=== PATIENT | female | born 1955 | race Caucasian/White ===

== ENCOUNTER 2017-04-04 13:47 | Inpatient (IN) | payer BC ==
[~2017-04-04] VITALS: Ht 162.6 cm; Wt 48.9 kg
--- NOTE | ~2017-04-04 | ER ---
PATIENT'S NAME: AUBREE CANALES [facility] AGE: 61 Y [address] ROOM: [place] [address] LOCATION: [facility] ADMIT DATE: 04/04/2017 ER/Outpatient Report DISCHARGE DATE: FAMILY PHYSICIAN: Dilcia Hussein MD ATTENDING PHYSICIAN: Rachel Petersen Time of Arrival: 1353 hours. Time of Evaluation: 1353 hours. CHIEF COMPLAINT: Head bleed. HISTORY OF PRESENT ILLNESS: The patient is a 61-year-old female who presents to the emergency department today a chief complaint of head bleed. The patient initially presented to [facility] after being found down, apparent ground level fall. 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 The patient was apparently found by her . No other information is known at this time other than the patient did undergo CT imaging and was found to have a subdural hematoma with herniation. PAST MEDICAL HISTORY: Piqua chorea and seizure disorder. PAST SURGICAL HISTORY: Unknown. SOCIAL HISTORY: The patient is , otherwise unknown. ALLERGIES: NO KNOWN DRUG ALLERGIES. MEDICATIONS: Please see list. REVIEW OF SYSTEMS: Unable to be obtained secondary to the patient's condition. LABORATORY DATA AND X-RAYS: Labs and x-rays are obtained at an outlying facility and reviewed. Lactic acid is 4.6. Urine drug screen is negative. PT is 15.4, INR is 1.46, activated PTT is normal. CBC: White blood cell count 7.5, hemoglobin 11.6, hematocrit 34, and platelet 197. CMP: Sodium 144, potassium 3.2, chloride 109, BUN 12, creatinine 0.7, and glucose 174. AB.47/36/497/26/2.0. PATIENT'S NAME: AUBREE CANALES [facility] AGE: 61 Y [address] ROOM: [address] [address] LOCATION: [facility] ADMIT DATE: 04/04/2017 ER/Outpatient Report DISCHARGE DATE: FAMILY PHYSICIAN: Dilcia Hussein MD ATTENDING PHYSICIAN: Rachel Petersen Urinalysis shows glucose 70, ketone 1+, blood 2+, wbc's 8, rbc's 32, epithelials 2. Amylase is normal. EKG is obtained and is interpreted by myself shows sinus rhythm, rate of 90, normal axis, OK interval normal, QTc of 475. No ST elevation, ST depression, or T-wave inversions are noted. Pelvis x-ray, no evidence of acute fracture. One-view chest x-ray: The ET tube is in place. There is no evidence of pneumothorax. No obvious fracture noted. CT scan of the neck is also obtained and is reviewed by myself. There are no obvious fractures noted. IMPRESSION: Large subdural hematoma with midline shift. PHYSICAL EXAMINATION: VITAL SIGNS: Weight 47.1 kg. Blood pressure 121/71, pulse 108, temperature 96.2, and oxygen saturation 100%, currently being bagged. HEENT: Head: Normocephalic with trauma noted and laceration to the right occipital region. Munson in place, 4 cm approximately. Pupils 3 on the right and sluggish and 3.5 on the left and sluggish. ET tube in place. NECK: In cervical collar. CARDIOVASCULAR: Tachycardic. No murmurs, rubs, or gallops. LUNGS: Bilateral breath sounds. ABDOMEN: Soft and nontender. Positive bowel sounds. MUSCULOSKELETAL: No bony tenderness to palpation. No obvious deformities are noted. NEUROLOGICAL: GCS of 3. Does withdraw to painful stimuli, bilateral lower extremities. No painful reaction in the upper extremities. SKIN: Warm and dry. EMERGENCY DEPARTMENT COURSE: The patient was brought back to the examination room. Seen and evaluated by myself. Laboratory analysis is obtained and is pending at time of transfer to the operating room. The patient's outlying labs are reviewed and EKG is reviewed as described above. I have discussed the case with Dr. Petersen as well as Dr. Morris. They have both seen and evaluated the patient down here in the emergency department. Dr. Petersen has had a discussion with the family, please see his dictation. The patient will proceed to the operating room for treatment and management of subdural with herniation. DISPOSITION: The patient is transferred to the operating room under the care Dr. Petersen and Dr. Morris in critical condition. PATIENT'S NAME: AUBREE CANALES [facility] AGE: 61 Y [address] ROOM: [place] [address] LOCATION: [facility] ADMIT DATE: 04/04/2017 ER/Outpatient Report DISCHARGE DATE: FAMILY PHYSICIAN: Dilcia Hussein MD ATTENDING PHYSICIAN: Rachel Petersen DO KJR/modl /[id number] d: 04/04/171951 t: 04/14/17 0650, OUTPATIENT REPORT
--- NOTE | ~2017-04-04 | HP ---
PATIENT'S NAME: AUBREE CANALES [facility] AGE: 61 Y [address] ROOM: [place] [address] LOCATION: [facility] ADMIT DATE: 04/04/2017 History & Physical DISCHARGE DATE: FAMILY PHYSICIAN: Dilcia Hussein MD ATTENDING PHYSICIAN: Michelle Tejeda DATE OF SERVICE: HISTORY OF PRESENT ILLNESS: This 61-year-old female was transferred here from [place]. She has a history of [place] disease and came from [facility] today with her . She fell. She has had previous falls in the past, some of which she did not tell her about and following this fall, her discovered her almost within a few minutes. Said initially that she responded but soon after that, she became unresponsive, she called motorized squad captain, and quickly got in there, and she had to be intubated and taken to the emergency room in [place]. In the emergency room in [place], she was given a gram per kg of mannitol and scans were done. CT scan of the brain showed a huge left acute, subacute, chronic subdural hematoma, and she was consequently transferred here. PAST MEDICAL HISTORY: She has a history of Kareen chorea apart from that, she really did not have any other medical problems. She has a history of seizures. SOCIAL HISTORY: See the admitting note. ALLERGIES: NO KNOWN ALLERGIES TO MEDICATION. MEDICATIONS: See the admitting note. REVIEW OF SYSTEMS: Could not be carried out primarily because of her neurological status. PHYSICAL EXAMINATION: In the emergency room, the examination was limited. Lady was already intubated, ventilated, just recently been sedated. The pupils were 4 mm in diameter. They both reacted sluggishly to light. I could get withdrawal response in the lower extremities. It really did not get much response in the upper extremities. She was being bagged. I reviewed the CT scan of the brain and as noted in the history, she has a huge subdural hematoma with a very significant losp-du-zzxad shift. PATIENT'S NAME: AUBREE CANALES [facility] AGE: 61 Y [address] ROOM: [place] [address] LOCATION: [facility] ADMIT DATE: 04/04/2017 History & Physical DISCHARGE DATE: FAMILY PHYSICIAN: Dilcia Hussein MD ATTENDING PHYSICIAN: Michelle Tejeda IMPRESSION: Large left acute, subacute, and chronic subdural hematoma with marked right-to- left shift. I discussed the situation with the and the family and they agreed. Cause of treatment was to go ahead and try kelly holes and see if we could drain the subdural with kelly holes, then after that see how she is and see how she does. She pointed out that she also did have some long aspiration. Apparently, when she fell, was unconscious. We planned therefore to take her straight to the operating room and do kelly holes on the left side and see how that plays out. MICHELLE TEJEDA MD AEB/modl /[id number] D: [id number] T: [id number] HISTORY & PHYSICAL
--- NOTE | ~2017-04-04 | DS ---
PATIENT'S NAME: AUBREE CANALES [facility] AGE: 61 Y [address] ROOM: [address] [address] LOCATION: [facility] ADMIT DATE: 04/04/2017 Discharge Summary DISCHARGE DATE: 04/10/2017 FAMILY PHYSICIAN: Dilcia Hussein MD ATTENDING PHYSICIAN: Rachel Petersen DATE OF : 04/10/2017. 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 On the day of admission, came back from [facility] and suddenly fell in the driveway. The was close by, and promptly went to her rescue. Her initial phase he said, she did respond to him. However, by the time that he called 911 and by the time the financial administrator arrived, she became unresponsive. Consequently, she was intubated and taken to the Emergency Room in [place], from where she was consequently referred here. In [place], she had been given a gram per kilogram body weight of mannitol, and investigations carried out there included a CT scan of the brain, which showed a large left acute/subacute chronic subdural hematoma with markedly mmth-mr-ncwbh shift in the midline. On arrival in the Emergency Room, she was unresponsive, she was intubated, and was being ventilated. She was quickly taken to the Operating Room, and had left frontal and parietal kelly holes for evacuation of the subdural hematoma. A subdural drain was put in preoperatively. Although she was unresponsive, the pupils were in diameter, but they reacted sluggishly to light. There was some withdrawal response in both lower extremities prior to going to surgery. There was no response in the upper extremities. She underwent the surgery uneventfully, which was primarily kelly hole evacuation of the subdural hematoma. She was consequently taken back to the Operating Room under continued sedation. She went on to have a CT scan of the brain and a followup CT scan of the brain the day after the subdural hematoma had almost completely been evacuated. There was some pneumocephalus, and there was just a slight jeuf-vz-qusac shift of the midline. Unfortunately, however, the CT scan showed diffuse subarachnoid hemorrhage in both hemispheres, which was not there preoperatively. In addition, she had a large right cerebellar hemorrhage, and there was bilateral contusion of the brain. There were multiple areas of hemorrhage within the brain itself, as well as areas of contusion in the left frontal and left parietal lobes. In light of the marked deterioration of the CT scan of brain, the situation was discussed with her . It was elected to at least see how she would do without being that aggressive. We stopped the sedation and tried to see if she would come around. Unfortunately, she did not, and the as well as the rest of the family elected to take her off the ventilator. The Palliative Care Service was consulted, and they took care of her during her last days. PATIENT'S NAME: AUBREE CANALES [facility] AGE: 61 Y [address] ROOM: [place] [address] LOCATION: [facility] ADMIT DATE: 04/04/2017 Discharge Summary DISCHARGE DATE: 04/10/2017 FAMILY PHYSICIAN: Dilcia Hussein MD ATTENDING PHYSICIAN: Rachel Petersen She following extubation. FINAL DIAGNOSES: 1. Large left acute, subacute, and chronic subdural hematoma. 2. Diffuse contusion of the brain. 3. Intraventricular hemorrhage. 4. Subarachnoid hemorrhage. 5. Severe head injury. MD FREDERICK JULIO/modl /[id number] d: 04/24/172327 t: 05/28/17 1208, DISCHARGE SUMMARY
--- NOTE | ~2017-04-04 | CON ---
PATIENT'S NAME: AUBREE CANALES [facility] AGE: 61 Y [address] ROOM: [place] [address] LOCATION: [facility]ICU ADMIT DATE: 04/04/2017 Consultation DISCHARGE DATE: FAMILY PHYSICIAN: Dilcia Hussein MD ATTENDING PHYSICIAN: Rachel Petersen DATE OF CONSULTATION: 04/04/2017 REFERRING PHYSICIAN: Rachel Petersen MD REASON FOR CONSULTATION: Neurointensive management. CHIEF COMPLAINT: Apmba-mk-vugajgp subdural hematoma. 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 Her gait over the past few weeks was at home, stepped outside within 5 minute, found her down and unresponsive, EMS was called. She had experienced some emisis and aspiration prior during ET tube placement in the field. She was taken to [facility], found to have appeared to be svhbg-yp-ctscvok subdural hematomas, was transported here for definitive care. She was emergently taken back to the OR for removal kelly hole evacuation of the hematoma. Seeing her postoperatively during the case, she had placed arterial line and central line. She did lose fair amount of blood and is undergoing massive transfusion protocol. She was initially hypotensive in the ICU and responded to fluid. She has roughly 4 units of PRBCs, 2 of FFP, and one of platelets. PAST MEDICAL HISTORY: Significant for [place] disease, seizure disorder. ALLERGIES: UNKNOWN. REVIEW OF SYSTEMS: Unobtainable. PHYSICAL EXAMINATION: VITAL SIGNS: Currently heart rate is 60, blood pressure is 140/51, 100% SpO2, she is on a ventilator with tidal volume 300 at rate of 20 and PEEP of 5. HEENT: Head; her dressings; there is some blood coming through. There is a GERTRUDE drain that is accumulating some bright red blood. CHEST: Clear to auscultation. PATIENT'S NAME: AUBREE CANALES [facility] AGE: 61 Y [address] ROOM: [place] [address] LOCATION: [facility] ADMIT DATE: 04/04/2017 Consultation DISCHARGE DATE: FAMILY PHYSICIAN: Dilcia Hussein MD ATTENDING PHYSICIAN: Rachel Petersen HEART: Regular rate and rhythm. ABDOMEN: Soft and nondistended. EXTREMITIES: No cyanosis, clubbing, or edema. NEUROLOGIC: Her left pupil appears to be dilated and unresponsive, maybe around 5 mm. The right pupil is unresponsive and is about 4 mm. She is not withdrawing to painful stimuli though she is still may have some paralytic on board. There is no gag noted as well. LABORATORY DATA: White cells were 17, hemoglobin is 9.5, platelets 57. Potassium is 2.9, sodium 150, creatinine 0.8, BUN 10, glucose 288, INR is 3.2, fibrinogen 30, PTT is 300. CT scan showed bnlpp-hs-zfegyjp good size left ventricular hematoma. ABG is pending. ASSESSMENT: 1. Jdrqc-wh-ywgvczj subdural hematoma status post kelly hole evacuation. 2. Coagulopathy likely due to hemorrhage and acute blood loss. We are working to replace PRBC FFP cryo platelets to arrest her coagulopathy. 3. Thrombocytopenia. 4. Temple disease. 5. Acute respiratory failure secondary to head injury with hypoxia and hypocarbia. DISPOSITION: At this time, ICU. CONDITION: Critical. Did have a discussion with the family with regards on what she would like to have done or not done. This time wanted to proceed with the procedure and see if she wakes up. Did discuss that she could have aspiration pneumonia and may require a period of time on the ventilator, had been achieved as she does wake up. They are in agreement and proceeded. Does appear at this time there is some worsening of the condition from arrival. FLY WALKER MD JArtP/modl PATIENT'S NAME: AUBREE CANALES [facility] AGE: 61 Y [address] ROOM: [place] [address] LOCATION: [facility] ADMIT DATE: 04/04/2017 Consultation DISCHARGE DATE: FAMILY PHYSICIAN: Dilcia Hussein MD ATTENDING PHYSICIAN: Rachel Petersen /[id number] d: 06/19/17 0003 t: 04/15/17 1711, CONSULTATION REPORT
--- NOTE | ~2017-04-04 | OR ---
PATIENT'S NAME: AUBREE CANALES [facility] AGE: 61 Y [address] ROOM: [place] [address] LOCATION: [facility] ADMIT DATE: 04/04/2017 OR/Procedure Report DISCHARGE DATE: FAMILY PHYSICIAN: Dilcia Hussein MD ATTENDING PHYSICIAN: Rachel Petersen SURGEON: Waqas Morris MD QUAHOGGER: DATE OF PROCEDURE: 04/04/2017 PROCEDURES PERFORMED: Central line placement and arterial line placement. DESCRIPTION OF PROCEDURE: Procedure #1: Central line placement. After induction of general anesthesia, the patient was supine on the operating room table. Neck was prepped with chlorhexidine 2%. Maximal sterile barriers were worn at all times. Ultrasound used for real-time guidance with the introducer needle. With a single stick, dark, nonpulsatile blood was found on return. Wire was threaded without difficulty, and the ultrasound was used to visualize the wire in the internal jugular vein. Next, the skin nicked, dilated, and a four-lumen, 8-1/2-Swedish 16 cm catheter was placed over the wire and the wire removed. Catheter was secured in place. All ports withdrew, blood flushed easily. Chest x-ray was ordered in ICU. COMPLICATIONS: None. ESTIMATED BLOOD LOSS: None. Procedure #2: Right arterial line placement. Arm was extended out at 90 degrees, cleaned with 2% chlorhexidine. Using a Seldinger technique, and a 20- gauge Arrow catheter, Art line kit was placed with a single stick revealing bright red pulsatile blood. Catheter was threaded without difficulty and secured into place. ESTIMATED BLOOD LOSS: None. COMPLICATIONS: None. WAQAS MORRIS MD JJP/modl /[id number] d: 04/08/171924 t: 04/15/171713, OPERATIVE SUMMARY
--- NOTE | ~2017-04-04 | CON ---
PATIENT'S NAME: AUBREE CANALES [facility] AGE: 61 Y [address] ROOM: [address] [place], [place] [address] [address]: [facility] ADMIT DATE: 04/04/2017 Consultation DISCHARGE DATE: 04/10/2017 FAMILY PHYSICIAN: Dilcia Hussein MD ATTENDING PHYSICIAN: Rachel Petersen DATE OF CONSULTATION: 04/07/2017 REFERRING PHYSICIAN: Rachel Petersen MD LOCATION: ICU, room 6203. CHIEF COMPLAINT: Palliative care referral due to family's request for compassionate extubation. HISTORY OF PRESENT ILLNESS: The patient is a 61-year-old female with a history of [place] chorea who experienced a fall on her way into the house from congregation. She fell backwards and hit the back of her head on the cement. She sustained a large laceration to the back of her head, was intubated in the field, possibly aspirated stomach content prior to intubation. The patient was initially taken to [facility] where she was found to have acute on chronic subdural hematoma and was then transferred to [facility] for higher level of care where she was taken to OR for bilateral kelly holes and evacuation of subdural hematoma. At the current time, the patient remains unresponsive and is not on any sedation. A followup CT has shown worsening with concern for development of left RYAN distribution ischemia. Given this, the patient's family is considering compassionate extubation in the morning. PREVIOUS OPERATIONS: Breast biopsy. PAST MEDICAL HISTORY: 1. Seizure disorder. 2. B[place]ank chorea. 3. Anxiety. MEDICATIONS: Please see current MAR. ALLERGIES: NO KNOWN ALLERGIES. SOCIAL HISTORY: The patient is . She does not have children. No history of tobacco or PATIENT'S NAME: AUBREE CANALES [facility] AGE: 61 Y [address] ROOM: [address] [address] LOCATION: [facility] ADMIT DATE: 04/04/2017 Consultation DISCHARGE DATE: 04/10/2017 FAMILY PHYSICIAN: Dilcia Hussein MD ATTENDING PHYSICIAN: Rachel Petersen alcohol use. FAMILY HISTORY: Her father had B[place] chorea as well as 2 siblings. REVIEW OF SYSTEMS: Unobtainable as the patient is unresponsive, though family does note that over the last few weeks she has been having increasing difficulties with gait stability. Otherwise, she was in her usual state of health prior to this incident. PHYSICAL EXAMINATION: VITAL SIGNS: Blood pressure 145/79, heart rate 87, temperature 99.6, respirations 20, and O2 saturation 100% on 30% FiO2 on the ventilator. GENERAL: A thin, middle-aged white female who is lying in the intensive care unit, intubated and unresponsive. Does not appear to be in any acute distress. HEENT: Her head is wrapped in a gauze dressing. Dressing is clean, dry, and intact. Pupils are reactive and sluggish to brisk. Sclerae not icteric. Conjunctivae pink. Tongue and mucous membranes are moist and pink. Dentition is adequate. CARDIOVASCULAR: Heart tones regular rate and rhythm. I am not able to note a murmur. RESPIRATORY: Respirations are regular and nonlabored. Lung sounds are clear to auscultation bilaterally. I am not able to note any rales, rhonchi, or wheezes. GASTROINTESTINAL: Abdomen is soft, nontender, and nondistended. Bowel sounds are present. GENITOURINARY: Cee catheter intact with adequate amounts of yellow urine. MUSCULOSKELETAL: No significant joint deformities. Peripheral pulses are strong and equal bilaterally. There is no clubbing or cyanosis. She does have 1 to 2+ generalized edema. SKIN: Warm and dry. Does have significant bruising to face, shoulder, and neck. NEUROLOGICAL: Does not follow commands. Does not open eyes. Does withdraw extremities to painful stimuli. Overbreathes the vent. Does have a cough. IMPRESSION AND PLAN: 1. Respiratory failure. 2. Altered mental status. 3. Code status: The patient is a do not resuscitate. I met with the patient's Nolberto. Introduced the role of palliative care for additional support. He, very early in the conversation, tells me that he has decided that he wants to take her off the ventilator and "let her go" at 5:30 tomorrow morning. Given this, did provide education to the PATIENT'S NAME: AUBREE CANALES [facility] AGE: 61 Y [address] ROOM: [place] [address] LOCATION: [facility] ADMIT DATE: 04/04/2017 Consultation DISCHARGE DATE: 04/10/2017 FAMILY PHYSICIAN: Dilcia Hussein MD ATTENDING PHYSICIAN: Rachel Petersen patient's and family on compassionate extubation and medications we would be using to help her be comfortable. Provided emotional support and active listening. Family reports that the patient's customer development manager had been up and provided anointing of the sick twice already during this hospital stay and felt as though they did not need anymore pastoral care visits at this time. Nursing staff tells me that the other providers involved in this case are aware of plans for extubation. Thus, compassionate extubation and comfort care order sets are completed and to be initiated in the morning when the patient's family is ready. I answered family's questions to their satisfaction. We will follow up in the morning and assist with comfort measures. Total visit was 60 minutes, greater than 50% of this time was spent providing education and counseling. Thank you for allowing me to assist with this patient and her family. RHONDA PARSONS NP FOR PHUONG RODRIGUEZ MD DLS/modl /[id number] CC: Rachel Petersen MD d: 04/13/17 1318 t: 04/14/17 1100, CONSULTATION REPORT
--- NOTE | ~2017-04-04 | OR ---
PATIENT'S NAME: AUBREE CANALES [facility] AGE: 61 Y [address] ROOM: [place] [address] LOCATION: GICU ADMIT DATE: 04/04/2017 OR/Procedure Report DISCHARGE DATE: FAMILY PHYSICIAN: Dilcia Hussein MD ATTENDING PHYSICIAN: Michelle Tejeda SURGEON: Michelle Tejeda MD FIRST CALENDER WORKER: DATE OF PROCEDURE: 04/04/2017 PREOPERATIVE DIAGNOSIS: Subacute acute on chronic subdural hematoma in the left hemisphere. POSTOPERATIVE DIAGNOSIS: Subacute acute on chronic subdural hematoma in the left hemisphere. OPERATION PROPOSED AND PERFORMED: Left frontal and left parietal bur holes for evacuation of subdural hematoma. DESCRIPTION OF PROCEDURE: Under general anesthesia, the patient was positioned supine. The head tilted to the right. The left frontoparietal region was shaved and prepped in the usual manner. First, the incision was carried out in the left frontal region. The pericranium was incised and reflected and a bur hole was carried out at this site. After, the bone wax was used to stop the bleeding from the edges of the bone. The dura was then cauterized and incised in a cruciate manner. The bright red fluid came out under significant quite a lot of pressure. The edges of the dura were then cauterized and we started irrigating the subdural space with bacitracin irrigation and the fluid was stayed reddish for quite a while and later on we decided to therefore put a second bur hole in the left parietal region and this was carried out uneventfully. However, there was not much subdural left in this region and consequently we did not get much on trying to irrigate the subdural space because the surface of the brain was already close to the surface of the dura. We put a piece of Gel-Foam over the bur hole site in this area and closed the wound in a single layer using 3-0 Prolene. Next, we directed our attention to the left frontal bur hole. Irrigated the area copiously with bacitracin irrigation and the fluid that was coming out was still pinkish red. We eventually decided to then put in a subdural drain, Grant-Gallagher, brought it out through a separate stab wound. A piece of Gelfoam was laid over into the bur hole that we had created and the scalp incision was closed in a single layer with 3-0 Prolene. We then put a stitch around the Grant-Gallagher drain at the exit wound from the scalp. Intraoperatively towards the end, she became hypotensive and required quite a lot of pressors and fluid before she came around. This we thought was probably secondary to hypovolemia because she had probably lost a lot of blood from the scalp laceration. Otherwise, the patient tolerated the procedure PATIENT'S NAME: AUBREE CANALES [facility] AGE: 61 Y [address] ROOM: [address] [address] LOCATION: [facility] ADMIT DATE: 04/04/2017 OR/Procedure Report DISCHARGE DATE: FAMILY PHYSICIAN: Dilcia Hussein MD ATTENDING PHYSICIAN: Michelle Tejeda well and was taken to the intensive care unit. MICHELLE TEJEDA MD AEB/modl /[id number] d: [id number]/04/[id number] t: 04/08/17 1517, OPERATIVE SUMMARY
[2017-04-04 14:42] LABS: BASOPHIL # 0.1 K/uL (0.0-0.2); BASOPHIL % 0.3 %; HEMATOCRIT 26.5 % (33.0-46.0); HEMOGLOBIN 8.7 g/dL (10.0-15.0); IMMATURE GRANULOCYTE # 0.2 K/uL (0.0-0.3); IMMATURE GRANULOCYTE % 1.2 %; LYMPHOCYTE # 2.1 K/uL (0.8-4.0); MCH 32.6 pg (27.0-34.0); MCHC 32.8 gm/dL (32.0-36.5); MCV 99.3 fl (83.0-98.0); MONOCYTE # 2.2 K/uL (0.0-1.0); MONOCYTE % 10.8 %; NEUTROPHIL # (ANC) 16.1 K/uL (1.8-7.8); NEUTROPHIL % 77.7 %; NRBC % 0 /100WBC (0-0.00); PLATELET COUNT 190 K/uL (150-450); RBC 2.67 M/uL (3.50-5.50); RDW-CV 12.7 % (11.9-14.6)
[2017-04-04 14:43] LABS: WBC 20.7 K/uL (4.0-11.0)
[2017-04-04 14:49] LABS: INR - (THERAPEUTIC) 1.55 (0.92-1.07); PROTIME 16.4 SECONDS (9.8-11.4); PTT 28 SECONDS (25-32)
[2017-04-04 14:57] LABS: ALBUMIN 2.7 gm/dL (3.5-5.0); ALK PHOS 65 IU/L (33-138); ALT 30 IU/L (12-78); AST 36 IU/L (10-40); BLOOD UREA NITROGEN 13 mg/dL (6-24); CHLORIDE 107 mMol/L (96-110); CO2 24 mMol/L (22-32); CREATININE 0.8 mg/dL (0.5-1.1); ESTIMATED GFR (MDRD EQUATION) > 60; SODIUM 143 mMol/L (135-145); TOTAL BILIRUBIN 0.4 mg/dL (0.0-1.5); TOTAL PROTEIN 5.1 g/dL (6.0-8.4)
[2017-04-04 14:58] LABS: ANION GAP 14.9 (10.0-19.0); CALCIUM 7.3 mg/dL (8.5-10.5); POTASSIUM 2.9 mMol/L (3.7-5.1)
[2017-04-04 16:41] LABS: BASOPHIL % 0.2 %; EOSINOPHIL % 0.1 %; HEMATOCRIT 29.5 % (33.0-46.0); HEMOGLOBIN 9.5 g/dL (10.0-15.0); IMMATURE GRANULOCYTE # 0.3 K/uL (0.0-0.3); IMMATURE GRANULOCYTE % 1.6 %; LYMPHOCYTE # 2.3 K/uL (0.8-4.0); LYMPHOCYTE % 13.5 %; MCHC 32.2 gm/dL (32.0-36.5); MCV 99.3 fl (83.0-98.0); MONOCYTE # 1.9 K/uL (0.0-1.0); MONOCYTE % 11.1 %; MPV 8.8 fl (9.4-12.4); NEUTROPHIL # (ANC) 12.6 K/uL (1.8-7.8); NEUTROPHIL % 73.5 %; NRBC % 0 /100WBC (0-0.00); RBC 2.97 M/uL (3.50-5.50); RDW-CV 13.6 % (11.9-14.6)
[2017-04-04 16:43] LABS: WBC 17.1 K/uL (4.0-11.0)
[2017-04-04 16:46] LABS: PLATELET COUNT 57 K/uL (150-450)
[2017-04-04 17:01] LABS: ALBUMIN 1.1 gm/dL (3.5-5.0); ALK PHOS 32 IU/L (33-138); ALT 14 IU/L (12-78); ANION GAP 20.9 (10.0-19.0); AST 21 IU/L (10-40); BLOOD UREA NITROGEN 10 mg/dL (6-24); CALCIUM 6.5 mg/dL (8.5-10.5); CHLORIDE 116 mMol/L (96-110); CO2 16 mMol/L (22-32); CREATININE 0.8 mg/dL (0.5-1.1); ESTIMATED GFR (MDRD EQUATION) > 60; POTASSIUM 2.9 mMol/L (3.7-5.1); SODIUM 150 mMol/L (135-145); TOTAL PROTEIN 2.2 g/dL (6.0-8.4)
[2017-04-04 17:02] LABS: TOTAL BILIRUBIN 0.1 mg/dL (0.0-1.5)
[2017-04-04 17:30] LABS: INR - (THERAPEUTIC) 3.23 (0.92-1.07); PROTIME 34.3 SECONDS (9.8-11.4)
[2017-04-04 17:32] LABS: PTT > 300 SECONDS (25-32)
[2017-04-04 18:07] LABS: PCO2 41 mmHg (35-45); PO2 484 mmHg (80-90)
[2017-04-04 18:08] LABS: POTASSIUM 3.3 mEq/L (3.7-5.1); SODIUM 146 mEq/L (135-145)
[2017-04-04 20:41] LABS: HEMATOCRIT 26.8 % (33.0-46.0); HEMOGLOBIN 9.2 g/dL (10.0-15.0); MCH 29.1 pg (27.0-34.0); MCHC 34.3 gm/dL (32.0-36.5); MPV 9.6 fl (9.4-12.4); RBC 3.16 M/uL (3.50-5.50); WBC 10.5 K/uL (4.0-11.0)
[2017-04-04 20:42] LABS: MCV 84.8 fl (83.0-98.0); PLATELET COUNT 112 K/uL (150-450); RDW-CV 16.2 % (11.9-14.6)
[2017-04-04 20:52] LABS: INR - (THERAPEUTIC) 1.07 (0.92-1.07); PROTIME 11.2 SECONDS (9.8-11.4); PTT 26 SECONDS (25-32)
[2017-04-04 21:02] LABS: ABSOLUTE NEUTROPHIL CT (ANC) 8.3 K/uL (1.8-7.8); BANDED NEUTROPHIL # 0.8 K/uL (0.0-0.1); BANDED NEUTROPHILS % 8 %; LYMPHOCYTE # 0.5 K/uL (0.8-4.0); LYMPHOCYTE % 5 %; MONOCYTE # 1.7 K/uL (0.0-1.0); SEGMENTED NEUTROPHIL # 7.5 K/uL (1.8-7.8); SEGMENTED NEUTROPHIL % 71 %
[2017-04-05 00:24] LABS: HEMOGLOBIN 8.8 g/dL (10.0-15.0)
[2017-04-05 05:05] LABS: BICARBONATE 25.8 mmol/L (18.0-23.0); LACTATE 2.5 mEq/L (0.50-1.60); PCO2 38 mmHg (35-45); PO2 161 mmHg (80-90)
[2017-04-05 05:20] LABS: BASOPHIL % 0.1 %; HEMOGLOBIN 11.6 g/dL (10.0-15.0); IMMATURE GRANULOCYTE % 0.4 %; LYMPHOCYTE # 1.1 K/uL (0.8-4.0); LYMPHOCYTE % 13.8 %; MCH 29.7 pg (27.0-34.0); MCV 84.7 fl (83.0-98.0); MONOCYTE # 1.2 K/uL (0.0-1.0); MONOCYTE % 15.3 %; MPV 9.8 fl (9.4-12.4); NEUTROPHIL # (ANC) 5.6 K/uL (1.8-7.8); NEUTROPHIL % 70.4 %; NRBC % 0 /100WBC (0-0.00); PLATELET COUNT 95 K/uL (150-450); RBC 3.91 M/uL (3.50-5.50); RDW-CV 16.4 % (11.9-14.6)
[2017-04-05 05:26] LABS: ALBUMIN 2.4 gm/dL (3.5-5.0); ALK PHOS 48 IU/L (33-138); ALT 26 IU/L (12-78); AST 32 IU/L (10-40); BLOOD UREA NITROGEN 7 mg/dL (6-24); CALCIUM 7.8 mg/dL (8.5-10.5); CO2 26 mMol/L (22-32); CREATININE 0.7 mg/dL (0.5-1.1); ESTIMATED GFR (MDRD EQUATION) > 60; POTASSIUM 3.7 mMol/L (3.7-5.1)
[2017-04-05 05:28] LABS: ANION GAP 10.7 (10.0-19.0); CHLORIDE 129 mMol/L (96-110); SODIUM 162 mMol/L (135-145); TOTAL BILIRUBIN 0.7 mg/dL (0.0-1.5)
[2017-04-05 05:29] LABS: HEMATOCRIT 33.1 % (33.0-46.0)
[2017-04-05 05:41] LABS: INR - (THERAPEUTIC) 1.08 (0.89-1.05); PROTIME 11.3 SECONDS (9.1-10.7); PTT 26 SECONDS (23-30)
--- NOTE | 2017-04-05 08:16 | NUR ---
Significant Event: PT REMAINS INTUBATED, NO SEDATION. R) PUPIL 3/FIXED, L) PUPIL 5/FIXED. INDUCED COUGH PRESENT, NO SPONTANEOUS MOVMENT OTHER THAN TWITCHING, DECEREBRATE POSTURING. BECOMES VERY HYPERTENSIVE WITH STIMULATION. HR 50S-120S THIS SHIFT, MOSTLY 70S-80S. ONE DOSE OF HYDRALAZINE GIVEN, PATIENT VERY SENSITIVE AND BECAME HYPOTENSIVE TO THE POINT OF NEEDING LEVOPHED AGAIN. DR. WALKER UPDATED WHEN MAXED AND MAP STILL LESS THAN 70, SEE CHART FOR ORDERS RECEIVED. OVERBREATHES VENT AT TIMES, FIO2 WEANED TO 30%. OG TO LIS, DRAINING BILE. NO BM THIS SHIFT. UOP COPIOUS (3600 ML THIS [address] WALKER AWARE, SEE LONG-HAND. EVEN WITH LARGE AMOUNTS OF UOP, PT IS [phone] FOR HOSPITALIZATION. NA+ ON AM LABS 162, DR. WALKER UPDATED AND IVF CHANGED TO 1/2 NS @100/HR. Follow up: CONTINUE, CT IN AM CRISTAL CRONIN RN
[2017-04-05 08:17] LABS: HEMATOCRIT 33.3 % (33.0-46.0); HEMOGLOBIN 12.1 g/dL (10.0-15.0)
[2017-04-05] MEDS ORDERED: DEPAKOTE EXTEN500 MG PO (11:31)
[2017-04-05] MEDS ORDERED: DILANTIN100 MG PO ×3 (11:33→11:40)
[2017-04-05] MEDS ORDERED: ASPIRIN LO-DOSE81 MG PO (11:40)
[2017-04-05] MEDS ORDERED: THERAGRAN-M1 TAB PO (11:40)
[2017-04-05] MEDS ORDERED: CALCIUM 500 +1 EACH PO (11:41)
[2017-04-05 12:02] LABS: HEMATOCRIT 33.1 % (33.0-46.0)
[2017-04-05 12:14] LABS: BLOOD UREA NITROGEN 8 mg/dL (6-24); CALCIUM 7.6 mg/dL (8.5-10.5); CO2 25 mMol/L (22-32); CREATININE 0.6 mg/dL (0.5-1.1); ESTIMATED GFR (MDRD EQUATION) > 60; POTASSIUM 3.4 mMol/L (3.7-5.1)
[2017-04-05 12:16] LABS: ANION GAP 10.4 (10.0-19.0); CHLORIDE 128 mMol/L (96-110); SODIUM 160 mMol/L (135-145)
[2017-04-05 16:15] LABS: HEMOGLOBIN 11.5 g/dL (10.0-15.0)
[2017-04-05 16:31] LABS: ALBUMIN 2.1 gm/dL (3.5-5.0); ANION GAP 9.5 (10.0-19.0); BLOOD UREA NITROGEN 7 mg/dL (6-24); CALCIUM 7.7 mg/dL (8.5-10.5); CHLORIDE 129 mMol/L (96-110); CO2 25 mMol/L (22-32); CREATININE 0.6 mg/dL (0.5-1.1); ESTIMATED GFR (MDRD EQUATION) > 60; PHOSPHORUS 3.2 mg/dL (2.5-4.9); POTASSIUM 3.5 mMol/L (3.7-5.1); SODIUM 160 mMol/L (135-145)
--- NOTE | 2017-04-05 16:52 | NUR ---
No changes to vent settings t/o shift, continued on 30% Fio2. Lung sounds slightly coarse, sxn small white thick. CT transport with no complications. Will continue to monitor
--- NOTE | 2017-04-05 17:41 | NUR ---
PT DECERBRATE TO NOXIUOS STIMULI TO BUE, HYPERREFLEXIA TO BLE. PUPILS UNEQUAL AND FIXED (MD AWARE), SPONT COUGH VERY WEAK WITH INCREASED STIMULI. REPEAT CT SHOWING WORSE COUNTER-COUP BUT MIDLINE SHIFT BETTER AND L) SDH BETTER WITH DRAINED DC'D TODAY. PLAN TO WAIT 3 DAYS AND THEN MAKE PLAN PER FAMILY. VSS, T-MAX 99.7, PULSES 2+, NO EDEMA. LS C/D, A/C ON 30% AND HIGH 90-100% SATS. PADRON WITH LG UOP, DDAVP TO BE GIVEN X6 MORE DOSES (ONE GIVEN TODAY). NO BM, BS HYPO, OGT TO LIS. HOONAH J IN PLACE, FACIAL EDEMA AND ECCHYMOSIS, HEAD DRSG CHANGED WITH SHADOW PRESENT AND OK TO BE CHANGED PRN. R) RADIAL ART LINE DC'D, R) IJ IN PLACE AND PIV X2.
[2017-04-05 20:26] LABS: HEMATOCRIT 32.6 % (33.0-46.0); HEMOGLOBIN 11.7 g/dL (10.0-15.0)
[2017-04-06 00:07] LABS: HEMATOCRIT 32.6 % (33.0-46.0); HEMOGLOBIN 11.3 g/dL (10.0-15.0)
[2017-04-06 04:39] LABS: BICARBONATE 24.5 mmol/L (18.0-23.0); PCO2 36 mmHg (35-45); PO2 129 mmHg (80-90)
[2017-04-06 05:23] LABS: ALK PHOS 51 IU/L (33-138); ALT 20 IU/L (12-78); AST 23 IU/L (10-40); BLOOD UREA NITROGEN 7 mg/dL (6-24); CALCIUM 7.5 mg/dL (8.5-10.5); CO2 25 mMol/L (22-32); CREATININE 0.5 mg/dL (0.5-1.1); ESTIMATED GFR (MDRD EQUATION) > 60; POTASSIUM 3.3 mMol/L (3.7-5.1)
[2017-04-06 05:31] LABS: ANION GAP 8.3 (10.0-19.0); CHLORIDE 124 mMol/L (96-110); SODIUM 154 mMol/L (135-145); TOTAL BILIRUBIN 0.4 mg/dL (0.0-1.5); TOTAL PROTEIN 4.9 g/dL (6.0-8.4)
[2017-04-06 05:44] LABS: BASOPHIL % 0.3 %; EOSINOPHIL % 0.3 %; HEMATOCRIT 31.7 % (33.0-46.0); HEMOGLOBIN 11.2 g/dL (10.0-15.0); IMMATURE GRANULOCYTE % 0.4 %; LYMPHOCYTE # 1.1 K/uL (0.8-4.0); MCH 29.8 pg (27.0-34.0); MCHC 35.3 gm/dL (32.0-36.5); MCV 84.3 fl (83.0-98.0); MONOCYTE # 1.3 K/uL (0.0-1.0); MPV 9.9 fl (9.4-12.4); NEUTROPHIL # (ANC) 8.1 K/uL (1.8-7.8); NRBC % 0 /100WBC (0-0.00); PLATELET COUNT 83 K/uL (150-450); RBC 3.76 M/uL (3.50-5.50); RDW-CV 17.7 % (11.9-14.6); WBC 10.5 K/uL (4.0-11.0)
--- NOTE | 2017-04-06 05:48 | NUR ---
NO CHANGES THIS SHIFT, PT. ON VENT FIO2 30% WITH SATS 98-100%. ETCO2 32-36. BREATH SOUNDS HAVE BEEN SLIGHTLY COARSE IN THE UPPERS AT TIMES AND CLEARS WITH SUCTION. SUCTIONED A SMALL AMOUNT OF THICK WHITE SECRETIONS WILL CONTINUE TO FOLLOW UNTIL FURTHER NOTICE.
[2017-04-06 05:51] LABS: INR - (THERAPEUTIC) 1.07 (0.92-1.07); PROTIME 11.2 SECONDS (9.8-11.4)
--- NOTE | 2017-04-06 07:34 | NUR ---
Significant Event: PT REMAINS INTUBATED WITH NO SEDATION. PUPILS REMAIN FIXED/UNEQUAL. DECEREBRATE POSTURING IN BUE, FLEXION IN BLE. OCCASIONAL DECORTICATION MOVEMENT OF LUE NOTED GENERALIZED NOXIOUS STIMULI SUCH TURNING OR SUCTIONING. SR ON MONITOR, 80S NOT STIMULATED. WILL TACH UP TO 130 WITH STIMULATION BUT SETTLES EASILY. SBP 120S-140S, WILL INCREASE TO 180 WITH STIMULATION BUT SETTLES EASILY. AFEBRILE. RARELY OVERBREATHES SET VENT RATE. OG REMAINS TO LIS, NO BM THIS SHIFT. UOP APPROPRIATE. TOTAL UOP THIS SHIFT 600 ML. Follow up: CONTINUE CRISTAL CRONIN RN
[2017-04-06 17:20] LABS: ALBUMIN 2.1 gm/dL (3.5-5.0); BLOOD UREA NITROGEN 7 mg/dL (6-24); CALCIUM 7.6 mg/dL (8.5-10.5); CO2 23 mMol/L (22-32); CREATININE 0.5 mg/dL (0.5-1.1); ESTIMATED GFR (MDRD EQUATION) > 60; PHOSPHORUS 4.6 mg/dL (2.5-4.9)
[2017-04-06 17:25] LABS: ANION GAP 11.3 (10.0-19.0); CHLORIDE 118 mMol/L (96-110); POTASSIUM 4.3 mMol/L (3.7-5.1); SODIUM 148 mMol/L (135-145)
--- NOTE | 2017-04-06 19:00 | NUR ---
Significant Event:Pt had no sedation or IV pain medicine throughout the shift, continues to decerbrate with BUE to nailbed pressure and decorticate at times with the LUE when oral cares or other stimulation, BLE withdraw to painful stimuli, Rt pupil 3 brisk - sluggish and Lt pupil 5 fixed, Tmax = 101.4 and Tylenol given, SR throughout shift, gave Lopressor IVP x 2 for SBP > 150 , labetatol 100 mg via OG started today, pt remains on vent LS Clear and no vent changes, tolerated CPAP ok this AM for a few hours, hypo bowel sounds, OG to LIS, starr to DD with adequate UOP = 570mls this shift, Total fluids decreased to 120 mls/hr, Kphos given IV, family given frequent updates and Nolberto at bedside most of shift Follow up:Dr Petersen discussed with family to continue another day and see what happens
[2017-04-07 04:20] LABS: BICARBONATE 23.1 mmol/L (18.0-23.0); PCO2 34 mmHg (35-45); PO2 137 mmHg (80-90)
[2017-04-07 04:56] LABS: ALK PHOS 56 IU/L (33-138); ALT 17 IU/L (12-78); AST 21 IU/L (10-40); BLOOD UREA NITROGEN 7 mg/dL (6-24); CO2 23 mMol/L (22-32); CREATININE 0.5 mg/dL (0.5-1.1); ESTIMATED GFR (MDRD EQUATION) > 60; POTASSIUM 3.5 mMol/L (3.7-5.1)
[2017-04-07 04:59] LABS: ANION GAP 9.5 (10.0-19.0); CHLORIDE 118 mMol/L (96-110); SODIUM 147 mMol/L (135-145)
[2017-04-07 05:00] LABS: ALBUMIN 1.9 gm/dL (3.5-5.0); CALCIUM 7.2 mg/dL (8.5-10.5); TOTAL BILIRUBIN 0.5 mg/dL (0.0-1.5); TOTAL PROTEIN 4.9 g/dL (6.0-8.4)
--- NOTE | 2017-04-07 07:02 | NUR ---
Significant Event: PT REMAINS INTUBATED, NO SEDATION. NEURO CHECK MOSTLY UNCHANGED OTHER THAN ASSESSMENT OF PUPILS. PUPILS VARIABLE THROUGHOUT SHIFT. NO GAG, OCCASIONAL COUGH, CORNEALS PRESENT, POSITIVE BABINSKI BILATERALLY. DECEREBRATE IN BUE, W/D IN BLE. SR IN 80S ON MONITOR, TACHS UP TO 120S WITH STIMULATION BUT QUICKLY RECOVERS. TMAX 99.3. RARELY OVERBREATHES VENT. HYPOACTIVE BS, NO BM THIS SHIFT. UOP APPROPRIATE. DRESSING TO HEAD CHANGED, LACERATION TO POSTERIOR PORTION STILL OOZING SIGNIFICANT AMOUNTS OF BLOOD. INFORMED DAY-SHIFT SO THAT THEY MAY HAVE MD LOOK AT SITE. Follow up: CONTINUE CRISTAL CRONIN RN
--- NOTE | 2017-04-07 07:47 | NUR ---
A - ON VENT, NO SEDATION. NA+ 147, GLU 116, BUN/SEAM STAYER 7/0.5, ALB 1.9. PT W/ 1+ EDEMA T/O. NPO. MD/FAMILY DECIDING ON POC AFTER TODAY. D - AT RISK W/ INADEQUATE ORAL INTAKE R/T RELIANCE ON VENT AEB NPO STATUS. I - GOAL: TO MEET 100% OF NEEDS VIA EN. M/E - 1) IF AGGRESSIVE CARE CONTS REC OSMOLITE 1.5 TO RUN AT GOAL OF 40 ML/HR = 1440 KCALS, 60 GM PROTEIN, 732 ML FREE H20. WILL F/U IN 2-4 DAYS.
--- NOTE | 2017-04-07 14:19 | NUR ---
Significant Event: Patient not alert. Pupils unequal and fixed to sluggish at times. Positive corneal relex. Withdraws to pain in bilateral lower extremities. Postures to pain in bilateral upper extremities. No gag. Eyes deviate to the left at times. VSS. Afebrile. CVP. Goal SBP<150. Ventilator in AC mode. LS clear and diminished. Cee draining yello urine. IV lasix given this shift. OG to LIS this AM. TF started mid morning. Hypoactive BS. No BM this shift. Accuchecks D/Cd this shift. Dressing to top of head. R) elbow bruised and abraded. L) inner and behind ear bruised. L) eye bruised. R) IJ infusing with no complications. Family at bedside. Follow up: awaiting to talk to Dr Petersen
[2017-04-07 18:18] LABS: ANION GAP 10.1 (10.0-19.0); BLOOD UREA NITROGEN 6 mg/dL (6-24); CALCIUM 7.5 mg/dL (8.5-10.5); CHLORIDE 113 mMol/L (96-110); CO2 25 mMol/L (22-32); CREATININE 0.4 mg/dL (0.5-1.1); ESTIMATED GFR (MDRD EQUATION) > 60; PHOSPHORUS 3.1 mg/dL (2.5-4.9); POTASSIUM 3.1 mMol/L (3.7-5.1); SODIUM 145 mMol/L (135-145)
[2017-04-07 18:25] LABS: ALBUMIN 1.9 gm/dL (3.5-5.0)
--- NOTE | 2017-04-08 05:53 | NUR ---
Patient extubated at 0536 to comfort care measures. Patient was placed on 2L O2 for comfort.
--- NOTE | 2017-04-08 06:12 | NUR ---
No neurological changes during shift. Vital signs remain stable. Afebrile. Patient compassionatley extubated to 2L Nasal canual per family request with o2 sats in the upper 90s. Palliative care spoke with family this shift. Patient now on comfort cares. Follow up: Keep patient comfortable.
--- NOTE | 2017-04-08 10:29 | NUR ---
PT MOVED TO NO RISK D/T COMFORT CARES. WILL ASSIST IF NEEDED.
--- NOTE | 2017-04-08 12:47 | NUR ---
Significant Event: Patient compassionately extubated this AM at 0530. Neuros not intact. Patient not alert. Does not follow commands. Does not move spontaneously. Did not attempt to apply painful stimuli per agreeance. Tele on per request. Tachycardic and Tachypneic. Generalized edema. 2L NC with sats in the mid 90s. LS slightly coarse throughout. starr intact. No BM this shift. R) jugular central line. Flushes with good blood return. Morphine HAT CUTTER started this shift. 1.5 mg continuous/1 mg bolus q10 min. Dressing to head intact. R) elbow bruised and abraded. L) inner ear and behind ear bruised. L) eye bruised. Resting in bed. stated "she looks comfortable" when asked about repositioning. Family at bedside. Patient on comfort cares. Follow up: transfer to [facility]
--- NOTE | 2017-04-08 15:23 | NUR ---
Significant Event: Pt transfered out of ICU at 1400 on comfort cares. Family at bedside. Bearevment tray ordered. Has a R) IJ, MS OPEN WINDER at 1.5 continous/1mg demand, 10 min lockout, family educated on use of OPEN WINDER. Did do a set of VS per family request, continues on 2 liters O2. Appears to be comfortable at this time/unresponsive. Cee draining zahra urine. Follow up:
--- NOTE | 2017-04-09 05:44 | NUR ---
Significant Event: Patient unresponsive. VSS. tachycardic at 102 HR. 99.1 temp. states he would like her repositioned every 3 hours rather than every 2. Cee cath in place. IJ to R) jugular. Morphine PROFESSOR OF [employer] at 1.5 continuous, 1 demand and 10 min lockout. Tachypnic. 2 liters oxgyen . IV dilantin to help prevent seizures. Follow up: Monitor vitals
--- NOTE | 2017-04-09 15:07 | NUR ---
Significant Event: Pt on comfort cares. Family at bedside. Repositioned q 3 hrs per request of family. Continues on MS EQUIPMENT DRIVER, pt appears to be comfortable this shift. Cee draining small amt of yellow urine. Follow up:
--- NOTE | 2017-04-10 05:16 | NUR ---
Significant Event: On comfort cares. Repositioned frequently as family requests. Suction at bedside. Does cough some with repositioning. Continue Morphine FOREIGN LANGUAGE TEACHER. T Max 103.3, tylenol given x 2 with the last dose at 0400. Rt neck IJ with good blood return. Atropine drops given x 2 and was given last at 0400. at bedside and has slept a good portion of the night. Follow up: Cont comfort cares.
--- NOTE | 2017-04-10 11:00 | NUR ---
Significant Event: Patient repositioned and given rectal suppository of tylenol at 0731 for temperature of 103.0. Patient also given atropine drops at this time. At 0935, AUTHORIZATION COORDINATOR went in to patient's room and family sitting at bedside and patient had . Nurse verified abscense of vital signs at 0940. Patient cleaned up and tubes removed. Time with patient given to family. Pastoral care offered and declined. [facility] chosen by family. Patient taken down to [facility] [place] at 1100 by security. Home en route to get patient.
== END 2017-04-10 09:40 | disposition expired | DRG 25 ==
LOC: GMED 13:47 → GICU 14:14 → GMSU 04-08 15:01
PROVIDERS: Anesthesiology; Emergency Medicine; ADMIT Neurological Surgery
PROC: 009 Central Nervous System and Cranial Nerves, Drainage (ICD-10-PCS; principal; 2017-04-04)
PROC: 03HY33Z Insertion of Infusion Device into Upper Artery, Percutaneous Approach (ICD-10-PCS; principal; 2017-04-04)
PROC: 02HV33Z Insertion of Infusion Device into Superior Vena Cava, Percutaneous Approach (ICD-10-PCS; principal; 2017-04-04)
PROC: 009400Z Drainage of Intracranial Subdural Space with Drainage Device, Open Approach (ICD-10-PCS; principal; 2017-04-04)
PROC: 5A1955Z Respiratory Ventilation, Greater than 96 Consecutive Hours (ICD-10-PCS; 2017-04-04)
PROC: 30233N1 Transfusion of Nonautologous Red Blood Cells into Peripheral Vein, Percutaneous Approach (ICD-10-PCS; 2017-04-04)
PROC: 30233K1 Transfusion of Nonautologous Frozen Plasma into Peripheral Vein, Percutaneous Approach (ICD-10-PCS; 2017-04-04)
PROC: 3E033XZ Introduction of Vasopressor into Peripheral Vein, Percutaneous Approach (ICD-10-PCS; 2017-04-04)
PROC: 30233M1 Transfusion of Nonautologous Plasma Cryoprecipitate into Peripheral Vein, Percutaneous Approach (ICD-10-PCS; 2017-04-04)
PROC: 30233N1 Transfusion of Nonautologous Red Blood Cells into Peripheral Vein, Percutaneous Approach (ICD-10-PCS; 2017-04-05)
DX: S06.5X0A Traumatic subdural hemorrhage without loss of consciousness, initial encounter (principal); J96.01 Acute respiratory failure with hypoxia; G10 Huntington's disease; D68.9 Coagulation defect, unspecified; I95.9 Hypotension, unspecified; E87.0 Hyperosmolality and hypernatremia; D62 Acute posthemorrhagic anemia; D69.6 Thrombocytopenia, unspecified; Z51.5 Encounter for palliative care; I10 Essential (primary) hypertension; E86.1 Hypovolemia; W18.30XA Fall on same level, unspecified, initial encounter; R40.2432 Glasgow coma scale score 3-8, at arrival to emergency department; G40.909 Epilepsy, unspecified, not intractable, without status epilepticus; Z66 Do not resuscitate; T17.918A Gastric contents in respiratory tract, part unspecified causing other injury, initial encounter; Z91.81 History of falling; Z79.82 Long term (current) use of aspirin
CPT/HCPCS: J0360; J0690; J1165; J1720; J1940; J1956; J2060; J2250; J2270; J2597; J7030; J7040; J7050; P9012; P9016; P9017; P9035